=== PATIENT | female | born 1970 | race African-American/Black ===

== ENCOUNTER → 2017-01-28 | Outpatient (CLI) | payer BC ==
--- NOTE | 2017-01-28 09:32 | RAD ---
DATE: 01/28/2017 EXAM: DIGITAL SCREEN BILAT W/CAD HISTORY: Screening COMPARISON: 11/17/2015 This study was interpreted with the benefit of Computerized Aided Detection (CAD). FINDINGS: Breast Density: SCATTERED The breast parenchyma shows scattered fibroglandular densities. Breast parenchyma level B. The right breast appears unchanged. In the left breast, on the MLO view there is an area of increased density superiorly. This almost certainly reflects summation artifact. A cone compression MLO view and an ML view are suggested for confirmation. Lymph nodes are noted in the right axilla IMPRESSION: Area of increased density left breast on the MLO view. Additional imaging suggested as outlined above. BI-RADS CATEGORY: 0 INCOMPLETE: NEED ADDITIONAL IMAGING EVAULATION AND/OR PRIOR MAMMOGRAMS FOR COMPARISON RECOMMENDED FOLLOW-UP: ADD ADDITIONAL IMAGING PQRS compliance statement: Patient information was entered into a reminder system with a target due date soon for the next mammogram. Mammography is a sensitive method for finding small breast cancers, but it does not detect them all and is not a substitute for careful clinical examination. A negative mammogram does not negate a clinically suspicious finding and should not result in delay in biopsying a clinically suspicious abnormality. "Our facility is accredited by the [employer] Mammography [employer]."
== END | disposition home or self-care (01) ==
LOC: MAMMO 08:02
PROVIDERS: ATTEND Internal Medicine
DX: Z12.31 Encounter for screening mammogram for malignant neoplasm of breast (principal)
CPT/HCPCS: G0202; 77067

== ENCOUNTER → 2017-02-21 | Outpatient (CLI) | payer BC ==
--- NOTE | 2017-02-21 09:57 | RAD ---
DATE: January 28, 2017 EXAM: DIGITAL DIAGNOSTIC LT HISTORY: Further evaluation of asymmetric nodular density seen within the upper aspect of the left breast in the MLO projection only on a screening mammogram. COMPARISON: Screening mammogram dated January 28, 2017 This study was interpreted with the benefit of Computerized Aided Detection (CAD). FINDINGS: Focal digital compression view of the upper aspect of the left breast in the MLO projection and a digital 90 degree mediolateral view of the left breast were performed. The previously seen asymmetric nodular density resolves with the additional views consistent with a benign finding of summation artifact of breast parenchyma. IMPRESSION: Benign finding of the left breast. Recommend routine screening mammography in one year. BI-RADS CATEGORY: 2 BENIGN FINDING RECOMMENDED FOLLOW-UP: 12M 12 MONTH FOLLOW-UP PQRS compliance statement: Patient information was entered into a reminder system with a target due date January 29, 2018 for the next mammogram. Mammography is a sensitive method for finding small breast cancers, but it does not detect them all and is not a substitute for careful clinical examination. A negative mammogram does not negate a clinically suspicious finding and should not result in delay in biopsying a clinically suspicious abnormality. "Our facility is accredited by the [employer] Mammography [employer]."
== END | disposition home or self-care (01) ==
LOC: MAMMO 09:33
PROVIDERS: ATTEND Internal Medicine
DX: R92.8 Other abnormal and inconclusive findings on diagnostic imaging of breast (principal)
CPT/HCPCS: G0206; 77065

== ENCOUNTER → 2018-05-29 | Outpatient (CLI) | payer BC ==
--- NOTE | 2018-05-29 10:55 | RAD ---
DATE: 05/29/2018 EXAM: MAMMO STUART SCREENING BILATERAL HISTORY: Routine screening COMPARISON: 02/21/2017, 01/28/2017 This study was interpreted with the benefit of Computerized Aided Detection (CAD). Breast Density: HETERO The breast parenchyma is heterogenously dense, which could reduce sensitivity of mammography. Breast parenchyma level C. FINDINGS: 2-D and 3-D tomosynthesis imaging was performed in CC and MLO projections. The fibroglandular tissues are heterogeneously somewhat nodular pattern. No spiculated mass or architectural distortion is seen. Benign type calcifications are present. No suspicious microcalcifications have developed. IMPRESSION: Stable mammograms without evidence of malignancy. BI-RADS CATEGORY: 2 BENIGN FINDING(S) RECOMMENDED FOLLOW-UP: 12M 12 MONTH FOLLOW-UP PQRS compliance statement: Patient information was entered into a reminder system with a target due date for the next mammogram. Mammography is a sensitive method for finding small breast cancers, but it does not detect them all and is not a substitute for careful clinical examination. A negative mammogram does not negate a clinically suspicious finding and should not result in delay in biopsying a clinically suspicious abnormality. "Our facility is accredited by the [employer] Mammography [employer]."
== END | disposition home or self-care (01) ==
LOC: MAMMO 08:15
PROVIDERS: ATTEND Internal Medicine
DX: Z12.31 Encounter for screening mammogram for malignant neoplasm of breast (principal)
CPT/HCPCS: 77063; 77067

== ENCOUNTER → 2019-07-27 | Outpatient (CLI) | payer BC ==
--- NOTE | 2019-07-28 12:04 | RAD ---
DATE: July 27, 2019 EXAM: MAMMO STUART SCREENING BILATERAL HISTORY: Screening study. COMPARISON: 2016 and 2018. This study was interpreted with the benefit of Computerized Aided Detection (CAD). 2-D digital mammographic views of both breasts were performed in the CC and MLO projections. 3-D digital tomosynthesis images of both breasts were performed in the CC and MLO projections and reviewed on a computer workstation. FINDINGS: Breast Density: SCATTERED The breast parenchyma shows scattered fibroglandular densities. Breast parenchyma level B.. There are no dominant suspicious masses, suspicious microcalcifications or evidence of architectural distortion. IMPRESSION: No mammographic indicators for malignancy. BI-RADS CATEGORY: 1 NEGATIVE RECOMMENDED FOLLOW-UP: 12M 12 MONTH FOLLOW-UP PQRS compliance statement: Patient information was entered into a reminder system with a target due date July 28, 2020 for the next mammogram. Mammography is a sensitive method for finding small breast cancers, but it does not detect them all and is not a substitute for careful clinical examination. A negative mammogram does not negate a clinically suspicious finding and should not result in delay in biopsying a clinically suspicious abnormality. "Our facility is accredited by the [employer] Mammography [employer]." The patient's breast density may affect the ability of mammography to detect breast cancer. There are 4 categories of breast density, A, B, C and D. Breast density A means that most of the breast tissue is replaced with adipose tissue and therefore is not dense. Breast density B means that the breast tissue is mildly dense and scattered. Breast density C means that the breast tissue is heterogeneously dense. Breast density D means that the breast tissue is very dense. Breast densities especially C and D may decrease the sensitivity of mammography to detect breast cancer. Therefore, the patient may benefit from 3-D breast mammography (3D breast tomography) as a part of their screening mammogram. Insurance may or may not pay for this additional imaging. The patient's breast density based on today's mammogram is category B.
== END | disposition home or self-care (01) ==
LOC: MAMMO 08:16
PROVIDERS: ATTEND Internal Medicine
DX: Z12.31 Encounter for screening mammogram for malignant neoplasm of breast (principal)
CPT/HCPCS: 77063; 77067

== ENCOUNTER → 2020-03-31 | Outpatient (CLI) | payer BC ==
[~2020-03-31] VITALS: Ht 167.6 cm; Wt 105.7 kg
[~2020-03-31] MED LIST: FERRIC CARBOXYMALTOSE 750 MG in IV NORMAL SALINE 250ML 250 ML IV ONE
[2020-03-31 09:17] VITALS: BP 131/81
== END | disposition home or self-care (01) ==
LOC: OPS 08:55
PROVIDERS: ATTEND Internal Medicine
DX: D50.0 Iron deficiency anemia secondary to blood loss (chronic) (principal)
CPT/HCPCS: 96365; J1439; J7050; J7030

== ENCOUNTER → 2020-09-21 | Outpatient (CLI) | payer BC ==
[2020-04-14 08:19] VITALS: BP 134/77
--- NOTE | 2020-09-21 17:32 | KCIC ---
EXAM: LEFT KNEE, 3 VIEWS. HISTORY: Left knee pain. COMPARISON: None. FINDINGS: No fractures are identified. There are moderate osteophytes along the medial compartment and mild med ial compartmental joint space narrowing. The lateral and patellofemoral compartmental joint spaces ar e relatively preserved. Alignment is normal. There is a small joint effusion. IMPRESSION: 1. Mild medial compartmental osteoarthritis. Small joint effusion. Electronically signed by: Nguyen Cochran MD (09/21/2020 5:29 PM) [id number]
--- NOTE | 2020-09-21 17:34 | KCIC ---
EXAM: Right foot 2 views. HISTORY: Right foot and third toe pain after injury. COMPARISON: None. FINDINGS: Two views of the right foot are obtained. No fractures are identified. There is mild hallux valgus and first metatarsophalangeal osteoarthritis . There are small soft tissue and osseous bunions. IMPRESSION: 1. Mild hallux valgus with mild first metatarsophalangeal osteoarthritis. Electronically signed by: Nguyen Cochran MD (09/21/2020 5:31 PM) [id number]
== END ==
LOC: KCIC 11:28
PROVIDERS: ATTEND Internal Medicine Rheumatology
DX: M17.12 Unilateral primary osteoarthritis, left knee (principal); M25.462 Effusion, left knee; M20.12 Hallux valgus (acquired), left foot; M19.071 Primary osteoarthritis, right ankle and foot
CPT/HCPCS: 73562; 73620

== ENCOUNTER → 2021-06-06 | Outpatient (CLI) | payer BC ==
[2020-04-14 08:19] VITALS: BP 134/77
--- NOTE | 2021-06-06 17:22 | RAD ---
Bilateral digital screening 2-D and 3-D (digital breast tomosynthesis) mammogram: Reason for examination: Routine screening. Comparison: Mammogram from 07/27/2019. Interpretation was made with the benefit of CAD. FINDINGS: Breast density: Category B. There are scattered areas of fibroglandular density. No suspicious breast mass, malignant appearing calcifications, or architectural distortion is seen. IMPRESSION: No evidence of malignancy. Assessment: BI-RADS 1. Negative. Recommendation: Routine screening mammograms. The patient will receive a letter with the results in the mail. Patient information will be entered i nto the mammography reminder system with a target recall date for the next mammogram. A reminder talib er will be generated. Electronically signed by: Emily Silverman MD (06/06/2021 5:19 PM) [id number]
== END ==
LOC: MAMMO 08:07
PROVIDERS: ATTEND Internal Medicine
DX: Z12.31 Encounter for screening mammogram for malignant neoplasm of breast (principal)
CPT/HCPCS: 77063; 77067